=== PATIENT | male | born 1980 | race Caucasian/White ===

== ENCOUNTER 2019-05-30 00:37 | Emergency (ER) | payer OTHER ==
[~2019-05-30] VITALS: Ht 177.8 cm; Wt 81.6 kg
[2019-05-30 01:10] VITALS: BP 117/70
[2019-05-30 01:30] VITALS: BP 117/70
[2019-05-30] MEDS ORDERED: cefTRIAXone 250 MG in LIDOCAINE MPF 1% 0.9 ML IM ONE (01:50)
[2019-05-30] MEDS ORDERED: PHENAZOPYRIDINE 100 MG TAB PO ONE (01:50)
[2019-05-30] MEDS ORDERED: AZITHROMYCIN 250 MG TAB PO ONE (01:50)
== END 2019-05-30 02:19 | disposition home or self-care (01) ==
LOC: MED 00:37
DX: A64 Unspecified sexually transmitted disease (principal); N34.2 Other urethritis; Z86.19 Personal history of other infectious and parasitic diseases
CPT/HCPCS: 99283; J0696; J2001; 96372

== ENCOUNTER 2019-06-14 15:00 | Emergency (ER) | payer OTHER ==
[~2019-06-14] VITALS: Ht 177.8 cm; Wt 81.6 kg
[2019-06-14 15:07] VITALS: BP 120/86
--- NOTE | 2019-06-14 15:15 | NUR ---
WAIT AT DOT,AAOX4
--- NOTE | 2019-06-14 16:07 | NUR ---
PATIENT AMBULATED TO BED 5
--- NOTE | 2019-06-14 16:16 | NUR ---
38M C/O SMALL PAINFUL BUMPS TO PENIS PAIN X 3 DAYS. DENIES TRAUMA/INJURY. DENIES DYSURIA, ITCHING TO AREA. PAIN 10/10 BURING TO AREA. WANTS TO BE TESTED FOR STI. MED HX: HEP C
--- NOTE | 2019-06-14 17:20 | NUR ---
DR. MORALES EVALUATING PT AT BEDSIDE.
[2019-06-14] MEDS ORDERED: DOXYCYCLINE 100 MG CAP PO SCH (17:50)
[2019-06-14 17:59] VITALS: BP 134/82
[2019-06-14 18:41] LABS: BILIRUBIN,URINE NEGATIVE (NEGATIVE); BLOOD, URINE NEGATIVE (NEGATIVE); LEUKOCYTE ESTERASE ,URINE NEGATIVE (NEGATIVE); NITRITE, URINE NEGATIVE (NEGATIVE); UGLUCOSE NEGATIVE (NEGATIVE)
[2019-06-14 18:54] LABS: APPEARANCE,URINE CLEAR (CLEAR); COLOR,URINE STRAW (YELLOW); RBC,URINE NONE SEEN /HPF (0-5); WBC,URINE NONE SEEN /HPF (0-5)
[2019-06-16 06:07] LABS: CHLAMYDIA TRACHOMATIS AMP DNA Negative (Negative)
== END 2019-06-14 17:59 | disposition home or self-care (01) ==
LOC: MED 15:00
DX: R21 Rash and other nonspecific skin eruption (principal); Z86.19 Personal history of other infectious and parasitic diseases
CPT/HCPCS: 36415; 81001; 87491; 99283

== ENCOUNTER 2019-06-18 00:30 | Emergency (ER) | payer OTHER ==
[~2019-06-18] VITALS: Ht 177.8 cm; Wt 81.6 kg
[2019-06-18 00:50] VITALS: BP 136/90
[2019-06-18 01:28] VITALS: BP 136/90
== END 2019-06-18 01:30 | disposition home or self-care (01) ==
LOC: MED 00:30
DX: R21 Rash and other nonspecific skin eruption (principal); Z86.19 Personal history of other infectious and parasitic diseases
CPT/HCPCS: 99283

== ENCOUNTER 2019-09-10 18:06 | Emergency (ER) | payer OTHER ==
[~2019-09-10] VITALS: Ht 177.8 cm; Wt 77.1 kg
[2019-09-10 18:39] VITALS: BP 156/114
--- NOTE | 2019-09-10 18:44 | NUR ---
39 y/o M present to ER c/o dry cough, body aches, chills x3 weeks. Pain level 10/10. Pt took cough medication around 3:30pm-4pm. A&Ox4. Respirations are even and unlabored. Waiting for ERMD to evaluate pt. Allergies: NKA Med hx: Hep C
--- NOTE | 2019-09-10 19:08 | NUR ---
REPORT RECIEVED FROM JOSI FOR CONTINUED CARE. PATIENT SITTING UP IN CHAIR.
[2019-09-10] MEDS ORDERED: KETOROLAC 60 MG/2 ML VIAL IM ONE (19:25)
[2019-09-10] MEDS ORDERED: ACETAMINOPHEN EXTRA STRENGTH 500 MG TAB PO ONE (19:25)
--- NOTE | 2019-09-10 19:56 | NUR ---
PT RETURN FROM XRAY
[2019-09-10 21:20] VITALS: BP 142/89
--- NOTE | 2019-09-10 21:21 | NUR ---
Patient discharged with v/s stable. Written and verbal after care instructions given and explained. Patient alert, oriented and verbalized understanding of instructions. Ambulatory with steady gait. All questions addressed prior to discharge. ID band removed. Patient advised to follow up with PMD. Rx of medrol, ventolin, ibuprofen given. Patient educated on indication of medication including possible reaction and side effects. Opportunity to ask questions provided and answered.
== END 2019-09-10 21:21 | disposition home or self-care (01) ==
LOC: MED 18:06
DX: J20.9 Acute bronchitis, unspecified (principal); B34.9 Viral infection, unspecified; F17.210 Nicotine dependence, cigarettes, uncomplicated; Z71.6 Tobacco abuse counseling; Z87.448 Personal history of other diseases of urinary system
CPT/HCPCS: 71045; 96372; 99283; J1885

== ENCOUNTER 2019-09-14 21:31 | Emergency (ER) | payer OTHER ==
[~2019-09-14] VITALS: Ht 177.8 cm; Wt 77.1 kg
[2019-09-14 21:35] VITALS: BP 121/79
--- NOTE | 2019-09-14 21:35 | NUR ---
TO BED # 12 AMBULATORY
--- NOTE | 2019-09-14 21:48 | NUR ---
39 YO M BIB SELF PRESENTS TO ED C/O BODY ACHES, DRY PRODUCTIVE COUGH X 3 WEEKS. INTERMITTENT SUBJECTIVE FEVER, CHILLS, NVD. WAS SEEN AND TREATED HERE X 2 DAYS AGO FOR BRONCHITIS. PT STATES HE FINISHED ALL RX AND IS NOT FEELING ANY BETTER. WAS TAKING MOTRIN, STEROID AND INHALER. STILL USING INHALER WITH TEMPORARY RELIEF. AFEBRILE AT THIS TIME. LUNGS CTA. DRY COUGH HEARD. SKIN NORMAL FOR ETHNICITY, WARM, DRY. BREATHING EVEN, UNLABORED. PT APPEARS TIRED, UNCOMFORTABLE. FAMILY SITTING AT BEDSIDE. PMH-- HEP C DAILY RX-- DENIES
--- NOTE | 2019-09-14 21:50 | NUR ---
DR. HUMBERTO RUTLEDGE AT BEDSIDE.
[2019-09-14] MEDS ORDERED: KETOROLAC 30 MG/ML VIAL IM ONE (21:55)
[2019-09-14] MEDS ORDERED: ACETAMIN/CODEINE 120/12MG-5ML 5 ML UDC PO ONE (21:55)
[2019-09-14 22:50] VITALS: BP 121/79
--- NOTE | 2019-09-14 22:50 | NUR ---
Patient discharged with v/s stable. Written and verbal after care instructions given and explained. Patient alert, oriented and verbalized understanding of instructions. Ambulatory with steady gait. All questions addressed prior to discharge. ID band removed. Patient advised to follow up with PMD. Rx of TAMIFLU, NAPTOSYN AND GUAIATUSSIN WAS given. Patient educated on indication of medication including possible reaction and side effects. Opportunity to ask questions provided and answered. PT STATED HE HAD NO PAIN 0/10 PRIOR TO D/C. PT WAS DRIVEN HOME BY FAMILY MEMBER
== END 2019-09-14 22:50 | disposition home or self-care (01) ==
LOC: MED 21:31
DX: J11.1 Influenza due to unidentified influenza virus with other respiratory manifestations (principal); R42 Dizziness and giddiness; Z86.19 Personal history of other infectious and parasitic diseases
CPT/HCPCS: 87804; 96372; 99283; J1885

== ENCOUNTER 2019-09-27 11:52 | Emergency (ER) | payer OTHER ==
[~2019-09-27] VITALS: Ht 177.8 cm; Wt 77.1 kg
[2019-09-27 12:50] VITALS: BP 100/71
[2019-09-27] MEDS ORDERED: ACETAMINOPHEN EXTRA STRENGTH 500 MG TAB PO ONE (12:55)
--- NOTE | 2019-09-27 13:17 | NUR ---
BIBS C/O BODY ACHES/ FLU LIKE SYMPTOMS [id number], PROGRESSIVELY GETTING WORSE. N/V/D, PRODUCTIVE COUGH, FEVER. DENIES SOB/CP. BOWEL SOUNDS NORMOACTIVE IN ALL QUADRANTS. LUNG SOUNDS CLEAR IN BILAT LOBES. RESP EVEN AND UNLABORED. SKIN IN TACT, DRY. AAOX3. BODY ACHES 10/10 THROUGHOUT ENTIRE BODY, SHARP PULSING PAIN. CAP REFILL <3 PMH: HEP C NKA
[2019-09-27] MEDS ORDERED: NACL 0.9% 1,000 ML IV SCH (13:59)
[2019-09-27] MEDS ORDERED: KETOROLAC 30 MG/ML VIAL IVP ONE (14:00)
[2019-09-27 14:56] LABS: BASOPHILS # (AUTO) 0.3 K/uL (0.00-0.22); EOSINOPHILS # (AUTO) 0.2 K/uL (0-0.4); EOSINOPHILS % (AUTO) 1.5 % (0.0-4.0); HEMATOCRIT 40.8 % (36-52); HEMOGLOBIN 13.6 g/dL (12.0-18.0); LYMPHOCYTES # (AUTO) 1.2 K/uL (2.0-11.5); LYMPHOCYTES % (AUTO) 8.7 % (20.5-51.1); MEAN CORPUSCULAR HEMOGLOBIN 30 pg (27-31); MEAN CORPUSCULAR HGB CONC 33 g/dL (33-37); MEAN CORPUSCULAR VOLUME 91.3 fL (80-94); MONOCYTES # (AUTO) 1.2 K/uL (0.8-1.0); NEUTROPHILS # (AUTO) 10.5 K/uL (1.8-7.7); NEUTROPHILS % (AUTO) 78.8 % (42.2-75.2); PLATELET COUNT (AUTO) 290 K/uL (140-450); RED BLOOD CELL COUNT(AUTO) 4.47 MIL/uL (4.20-6.10); RED CELL DISTRIBUTION WIDTH 13.3 % (11.6-13.7); WHITE BLOOD COUNT (AUTO) 13.3 K/uL (4.8-10.8)
--- NOTE | 2019-09-27 15:00 | NUR ---
ATTEMPTED TO COLLECT URINE SAMPLE FROM PATIENT, UNABLE TO VOID AT THIS TIME.
[2019-09-27 15:44] LABS: APPEARANCE,URINE CLEAR (CLEAR); BILIRUBIN,URINE NEGATIVE (NEGATIVE); BLOOD, URINE NEGATIVE (NEGATIVE); COLOR,URINE YELLOW (YELLOW); LEUKOCYTE ESTERASE ,URINE NEGATIVE (NEGATIVE); NITRITE, URINE NEGATIVE (NEGATIVE); UGLUCOSE NEGATIVE (NEGATIVE)
[2019-09-27 16:20] LABS: ALBUMIN 3.4 g/dL (3.4-5.0); ANION GAP 15.2 (8-16); CARBON DIOXIDE 24.2 mmol/L (21-32); CREATININE 0.9 mg/dL (0.7-1.3); POTASSIUM 3.4 mmol/L (3.5-5.1); TOTAL BILIRUBIN 0.9 mg/dL (0.0-1.0)
[2019-09-27 16:30] VITALS: BP 116/62
== END 2019-09-27 16:53 | disposition home or self-care (01) ==
LOC: MED 11:52
DX: J11.1 Influenza due to unidentified influenza virus with other respiratory manifestations (principal); F17.210 Nicotine dependence, cigarettes, uncomplicated; F12.10 Cannabis abuse, uncomplicated
CPT/HCPCS: 36415; 71045; 80053; 81003; 83605; 85025; 87040; 87086; 96374; 99284; J1885; J7030; Q0092

== ENCOUNTER 2021-11-21 10:07 | Emergency (ER) | payer MEDICAID, OTHER ==
[~2021-11-21] VITALS: Ht 177.8 cm; Wt 91.6 kg
[2021-11-21 10:20] VITALS: BP 121/94
--- NOTE | 2021-11-21 10:28 | NUR ---
PT AMBULATED TO ER BED 7
--- NOTE | 2021-11-21 10:48 | NUR ---
41/M BIB SELF, AA&OX4, AMBULATORY W/ STEADY GAIT; PRESENTS TO ED WITH C/O BACK PAIN 06/08, WITH RADIATING PAIN TO L LEG. PATIENT STATES PAIN HAS BEEN ON GOING FOR A "COUPLE OF YEARS" WORSENING YESTERDAY WHEN PATIENT WAS WORKING ON HIS CAR. PATIENT DENIES PAIN/TRAUMA, CP, SOB, N/V/D. PATIENT WAS SEEN AT [facility] YESTERDAY FOR SAME COMPLAINT AND STATES HE WAS GIVEN "A SHOT" W/ NO RELIEF NOTED. PMH: HEP C MEDS: ELISAIES NKA
--- NOTE | 2021-11-21 10:53 | NUR ---
PATIENT TAKEN TO RAD VIA WHEELCHAIR
--- NOTE | 2021-11-21 11:00 | NUR ---
PATIENT BROUGHT BACK TO ROOM VIA WHEELCHAIR.
[2021-11-21] MEDS ORDERED: LID5T TP (11:30)
[2021-11-21] MEDS ORDERED: NAPR-54 PO (11:30)
[2021-11-21] MEDS ORDERED: CYCL-711 PO (11:38)
[2021-11-21 12:05] VITALS: BP 121/94
--- NOTE | 2021-11-21 12:05 | NUR ---
Patient discharged with v/s stable. Written and verbal after care instructions ABOUT LOW BACK SPRAIN AND STRAIN REHAB given and explained. Patient alert, oriented and verbalized understanding of instructions. Ambulatory with steady gait. All questions addressed prior to discharge. ID band removed. Patient advised to follow up with PMD. Rx of FLEXERIL, LIDOCAINE HYD, NAPROXEN given.
--- NOTE | 2021-11-21 12:06 | NUR ---
The patient's care was reviewed and supervised by Janna Ying RN.
== END 2021-11-21 12:05 | disposition home or self-care (01) ==
LOC: MED 10:07
DX: M54.50 Low back pain, unspecified (principal); Z79.899 Other long term (current) drug therapy; Z86.19 Personal history of other infectious and parasitic diseases
CPT/HCPCS: 72100; 99283

== ENCOUNTER 2022-06-28 19:32 | Emergency (ER) | payer MEDICAID, OTHER ==
[~2022-06-28] VITALS: Ht 177.8 cm; Wt 78.9 kg
[~2022-06-28 19:32] MED LIST: CYCL-711 PO; LID5T TP; NAPR-54 PO
--- NOTE | 2022-06-28 20:20 | NUR ---
ATTEMPTED TO CALL PATIENT FOR TRIAGE WITH NO RESPONSE.
[2022-06-28 21:10] VITALS: BP 120/81
--- NOTE | 2022-06-28 23:11 | NUR ---
Dr. Gray examining patient.
--- NOTE | 2022-06-28 23:17 | NUR ---
Daniel callaway in ED - 06/28/22 at 2358 by LONNIE PATIENT ELOPED FROM FACILITY. DISCHARGE INSTRUCTIONS NOT GIVEN TO PATIENT. DR. GARCIA NOTIFIED.
--- NOTE | 2022-06-28 23:17 | NUR ---
Patient left without D/C papers.
--- NOTE | 2022-06-28 23:17 | NUR ---
Daniel callaway in [facility] - 06/28/22 at 2352 by [facility] PATIENT CALLED TO BED , NO RESPONSE PATIENT LEFT WITHOUT BEING SEEN BY DR. GARCIA. NO FURTHER CARE PROVIDED FOR PATIENT.
--- NOTE | 2022-06-28 23:25 | NUR ---
Daniel callaway in [facility] - 06/28/22 at 2352 by RAMON CALLED FOR THE SECOND TIME, NO RESPONSE
[2022-06-28] MEDS ORDERED: SULF-59 PO (23:36)
== END 2022-06-28 23:17 | disposition home or self-care (01) ==
LOC: MED 19:32
DX: L02.11 Cutaneous abscess of neck (principal); Z79.899 Other long term (current) drug therapy; Z86.19 Personal history of other infectious and parasitic diseases
CPT/HCPCS: 99283

== ENCOUNTER 2022-09-06 22:20 | Emergency (ER) | payer OTHER ==
[~2022-09-06] VITALS: Ht 177.8 cm; Wt 84.8 kg
[~2022-09-06 22:20] MED LIST changes: +SULF-59 PO
[2022-09-06 23:05] VITALS: BP 133/89
--- NOTE | 2022-09-06 23:25 | NUR ---
Dr. Johnston examining patient.
[2022-09-06] MEDS ORDERED: LIDOCAINE 5% 1 EA PATCH TP ONE (23:35)
[2022-09-06] MEDS ORDERED: KETOROLAC 15 MG/ML VIAL IM ONE (23:35)
[2022-09-06 23:57] VITALS: BP 133/89
== END 2022-09-06 23:57 | disposition left against medical advice (07) ==
LOC: MED 22:20
DX: R07.89 Other chest pain (principal); J45.909 Unspecified asthma, uncomplicated; F17.210 Nicotine dependence, cigarettes, uncomplicated; Z86.19 Personal history of other infectious and parasitic diseases; Z79.899 Other long term (current) drug therapy; Y04.0XXA Assault by unarmed brawl or fight, initial encounter; Y93.89 Activity, other specified; Y92.89 Other specified places as the place of occurrence of the external cause; Y99.8 Other external cause status
CPT/HCPCS: 93005; 99283; J1885

== ENCOUNTER 2022-09-10 13:12 | Emergency (ER) | payer OTHER ==
[~2022-09-10] VITALS: Ht 177.8 cm; Wt 83.5 kg
--- NOTE | 2022-09-10 13:19 | NUR ---
pt not in lobby at this time
[2022-09-10 13:33] LABS: BASOPHILS # (AUTO) 0.1 K/uL (0.00-0.22); EOSINOPHILS # (AUTO) 0.2 K/uL (0-0.4); EOSINOPHILS % (AUTO) 2.5 % (0.0-4.0); HEMATOCRIT 41.6 % (36-52); HEMOGLOBIN 14.6 g/dL (12.0-18.0); LYMPHOCYTES # (AUTO) 2.4 K/uL (2.0-11.5); LYMPHOCYTES % (AUTO) 38.4 % (20.5-51.1); MEAN CORPUSCULAR HEMOGLOBIN 31 pg (27-31); MEAN CORPUSCULAR HGB CONC 35 g/dL (33-37); MEAN CORPUSCULAR VOLUME 89.4 fL (80-94); MONOCYTES # (AUTO) 0.8 K/uL (0.8-1.0); MONOCYTES % (AUTO) 12.1 % (1.7-9.3); NEUTROPHILS # (AUTO) 2.9 K/uL (1.8-7.7); PLATELET COUNT (AUTO) 260 K/uL (140-450); RED BLOOD CELL COUNT(AUTO) 4.65 MIL/uL (4.20-6.10); RED CELL DISTRIBUTION WIDTH 13.5 % (11.6-13.7); WHITE BLOOD COUNT (AUTO) 6.3 K/uL (4.8-10.8)
--- NOTE | 2022-09-10 13:34 | NUR ---
PT TAKEN TO XRAY.
[2022-09-10 13:42] VITALS: BP 139/89
[2022-09-10 13:51] LABS: ANION GAP 12.3 (8-16); ASPARTATE AMINOTRANSFERASE 46 U/L (15-37); CARBON DIOXIDE 28.3 mmol/L (21-32); CHLORIDE 103 mmol/L (98-107); CREATININE 1.1 mg/dL (0.6-1.3); GFR ARICAN-AMERICAN 94 mL/min (>90); GLUCOSE 109 mg/dL (74-106); POTASSIUM 3.6 mmol/L (3.5-5.1); SODIUM SERUM 140 mmol/L (136-145); TOTAL BILIRUBIN 0.8 mg/dL (0.0-1.0); UREA NITROGEN, BLOOD 11 mg/dL (7-18)
[2022-09-10] MEDS ORDERED: IBUP-1842 PO (14:55)
[2022-09-10] MEDS: KETOROLAC 30 MG/ML VIAL IM ONE (15:01)
== END 2022-09-10 15:12 | disposition home or self-care (01) ==
LOC: MED 13:12
DX: R07.89 Other chest pain (principal); J45.909 Unspecified asthma, uncomplicated; Z79.899 Other long term (current) drug therapy; Z86.19 Personal history of other infectious and parasitic diseases
CPT/HCPCS: 36415; 71045; 80053; 84484; 85025; 93005; 96372; 99285; J1885

== ENCOUNTER 2022-10-01 13:20 | Emergency (ER) | payer OTHER ==
[~2022-10-01] VITALS: Ht 177.8 cm; Wt 82.1 kg
[~2022-10-01 13:20] MED LIST changes: +IBUP-1842 PO
[2022-10-01 13:36] VITALS: BP 110/75
[2022-10-01 15:29] LABS: BASOPHILS # (AUTO) 0.1 K/uL (0.00-0.22); BASOPHILS % (AUTO) 0.8 % (0.0-2.0); EOSINOPHILS # (AUTO) 0.2 K/uL (0-0.4); EOSINOPHILS % (AUTO) 2.6 % (0.0-4.0); HEMATOCRIT 42.4 % (36-52); HEMOGLOBIN 14.5 g/dL (12.0-18.0); LYMPHOCYTES # (AUTO) 2.3 K/uL (2.0-11.5); MEAN CORPUSCULAR HEMOGLOBIN 31 pg (27-31); MEAN CORPUSCULAR HGB CONC 34 g/dL (33-37); MONOCYTES % (AUTO) 11.7 % (1.7-9.3); NEUTROPHILS # (AUTO) 5.3 K/uL (1.8-7.7); NEUTROPHILS % (AUTO) 58.9 % (42.2-75.2); PLATELET COUNT (AUTO) 230 K/uL (140-450); RED BLOOD CELL COUNT(AUTO) 4.61 MIL/uL (4.20-6.10); RED CELL DISTRIBUTION WIDTH 13.4 % (11.6-13.7); WHITE BLOOD COUNT (AUTO) 8.9 K/uL (4.8-10.8)
[2022-10-01 15:48] LABS: ANION GAP 12.4 (8-16); ASPARTATE AMINOTRANSFERASE 39 U/L (15-37); CARBON DIOXIDE 24.5 mmol/L (21-32); CHLORIDE 100 mmol/L (98-107); CREATININE 0.9 mg/dL (0.6-1.3); GFR ARICAN-AMERICAN 119 mL/min (>90); GLUCOSE 122 mg/dL (74-106); POTASSIUM 3.9 mmol/L (3.5-5.1); SODIUM SERUM 133 mmol/L (136-145); TOTAL BILIRUBIN 0.4 mg/dL (0.0-1.0); UREA NITROGEN, BLOOD 6 mg/dL (7-18)
--- NOTE | 2022-10-01 17:18 | NUR ---
PATIENT CALLED TWICE BY US NO ANSWER
--- NOTE | 2022-10-01 19:32 | NUR ---
CALLED TO ROOM, NO ANSWER. LWBS
== END 2022-10-01 19:32 | disposition left against medical advice (07) ==
LOC: MED 13:20
DX: R07.89 Other chest pain (principal); R00.0 Tachycardia, unspecified; R74.01 Elevation of levels of liver transaminase levels; J45.909 Unspecified asthma, uncomplicated; Z79.1 Long term (current) use of non-steroidal anti-inflammatories (NSAID); Z79.899 Other long term (current) drug therapy; Z79.2 Long term (current) use of antibiotics; V43.52XA Car driver injured in collision with other type car in traffic accident, initial encounter; Y93.89 Activity, other specified; Y92.410 Unspecified street and highway as the place of occurrence of the external cause; Y99.8 Other external cause status
CPT/HCPCS: 36415; 71046; 80053; 83880; 84484; 85025; 85379; 93005; 99285

== ENCOUNTER 2023-02-09 12:25 | Emergency (ER) | payer OTHER ==
[~2023-02-09] VITALS: Ht 167.6 cm; Wt 68.0 kg
[2023-02-09 12:26] VITALS: BP 125/74
[2023-02-09] MEDS ORDERED: NACL 0.9% 1,000 ML IV ONE ×2 (12:35→13:35)
--- NOTE | 2023-02-09 12:56 | NUR ---
42 Y/O MALE BIB [employer] C/O SOB AND HIGH HR, HR IN TRIAGE 140S, ON [employer] [facility]. PER POLICE PT WAS RUNNING AWAY FROM THEM, DENIES ANY DRUG OR ALCOHOL CONSUMPTION. NKA PMH: HEPATITIS
--- NOTE | 2023-02-09 12:56 | NUR ---
PT OFFERED URINAL, REFUSED
[2023-02-09 13:29] LABS: BASOPHILS % (AUTO) 0.6 % (0.0-2.0); EOSINOPHILS # (AUTO) 0.1 K/uL (0-0.4); EOSINOPHILS % (AUTO) 2.2 % (0.0-4.0); HEMATOCRIT 41.3 % (36-52); HEMOGLOBIN 14.1 g/dL (12.0-18.0); LYMPHOCYTES # (AUTO) 2.6 K/uL (2.0-11.5); LYMPHOCYTES % (AUTO) 44.2 % (20.5-51.1); MEAN CORPUSCULAR HEMOGLOBIN 31 pg (27-31); MEAN CORPUSCULAR HGB CONC 34 g/dL (33-37); MEAN CORPUSCULAR VOLUME 91.1 fL (80-94); MONOCYTES # (AUTO) 0.7 K/uL (0.8-1.0); MONOCYTES % (AUTO) 11.7 % (1.7-9.3); NEUTROPHILS # (AUTO) 2.4 K/uL (1.8-7.7); NEUTROPHILS % (AUTO) 41.3 % (42.2-75.2); PLATELET COUNT (AUTO) 234 K/uL (140-450); RED BLOOD CELL COUNT(AUTO) 4.53 MIL/uL (4.20-6.10); RED CELL DISTRIBUTION WIDTH 13.9 % (11.6-13.7); WHITE BLOOD COUNT (AUTO) 5.9 K/uL (4.8-10.8)
[2023-02-09] MEDS ORDERED: ONDANSETRON 4 MG/2 ML VIAL IVP ONE (13:35)
[2023-02-09] MEDS ORDERED: ALBUTEROL SULFATE/IPRATROPIU 3 ML SOL IH ONE (13:35)
[2023-02-09 13:51] LABS: ALBUMIN 3.9 g/dL (3.4-5.0); ANION GAP 17.1 (8-16); ASPARTATE AMINOTRANSFERASE 49 U/L (15-37); CARBON DIOXIDE 23.8 mmol/L (21-32); CHLORIDE 103 mmol/L (98-107); CREATININE 1.2 mg/dL (0.6-1.3); GFR ARICAN-AMERICAN 85 mL/min (>90); GLUCOSE 102 mg/dL (74-106); LIPASE 125 U/L (73-393); POTASSIUM 3.9 mmol/L (3.5-5.1); SODIUM SERUM 140 mmol/L (136-145); TOTAL BILIRUBIN 0.5 mg/dL (0.0-1.0); UREA NITROGEN, BLOOD 12 mg/dL (7-18)
[2023-02-09 13:52] LABS: SALICYLATE < 2.8 mg/dL (2.8-20.0)
[2023-02-09 13:53] LABS: ACETAMINOPHEN < 0.5 ug/ml (10-30)
[2023-02-09] MEDS ORDERED: ALBU0.0912 INH (14:18)
[2023-02-09] MEDS ORDERED: PRED20TA5 PO (14:18)
[2023-02-09 15:01] VITALS: BP 131/82
--- NOTE | 2023-02-09 15:02 | NUR ---
Patient discharged with v/s stable. Written and verbal after care instructions given and explained. Patient alert, oriented and verbalized understanding of instructions. Police with in custody. All questions addressed prior to discharge. ID band removed. Patient advised to follow up with PMD. Rx of ALBUTEROL, PREDNISONE given. Patient educated on indication of medication including possible reaction and side effects. Opportunity to ask questions provided and answered.
[2023-02-09 15:20] LABS: BARBITURATE, URINE NEGATIVE ng/ml (NEG <=200); BENZODIAZEPINE, URINE NEGATIVE ng/mL (NEG <=200); CANNABINOID, URINE POSITIVE ng/mL (NEG <=50); COCAINE, URINE NEGATIVE ng/mL (NEG <=300); OPIATE, URINE NEGATIVE ng/mL (NEG <=2000); PHENCYCLIDINE SCREEN,URINE NEGATIVE ng/mL (NEG <=25)
== END 2023-02-09 15:02 | disposition home or self-care (01) ==
LOC: MED 12:25
DX: J45.901 Unspecified asthma with (acute) exacerbation (principal); F15.10 Other stimulant abuse, uncomplicated; F12.10 Cannabis abuse, uncomplicated; R74.01 Elevation of levels of liver transaminase levels; B19.20 Unspecified viral hepatitis C without hepatic coma; Z79.899 Other long term (current) drug therapy
CPT/HCPCS: 36415; 71045; 80053; 80305; 83690; 85025; 93005; 94640; 96361; 96374; 99285; G0480; G0482; J2405; J7030